=== PATIENT | female | born 1980 | race Two or more races ===

== ENCOUNTER 2016-12-09 23:30 | Emergency (ER) | payer MEDICAID ==
[2016-12-10] MEDS ORDERED: ACETAMINOPHEN 325 MG TABLET PO ONE (00:46)
[2016-12-10] MEDS ORDERED: MORPHINE SULFATE IR 15 MG TABLET PO ONE (00:46)
[2016-12-10] MEDS ORDERED: LIDOCAINE 5% (700 MG) TRANSDERMAL ADH..PATCH TP ONE (00:46)
--- NOTE | 2016-12-10 00:49 | ER Document Report ---
ED General - General Chief Complaint: Low Back Pain Stated Complaint: LOWER BACK PAIN Time Seen by Provider: 12/10/16 00:13 Notes: Patient is a 36-year-old female with past medical history of morbid obesity who presents with 36 hours of left low back pain. Patient states when she was in the shower yesterday she bent down to pick something off the floor and believes she strained her left low back. She states initially she did not have any significant pain but since that time she has had progressively worsening of a dull, constant, aching pain to the left low back that is worsened by movement. She does arrive by EMS today as she was laying in her bed and was unable to get out without assistance. No history of similar symptoms in the past. She has tried a icy hot patch to the back with moderate improvement of the pain. She has not seen a primary care doctor regarding today's concerns. She denies any associated weakness, numbness, bowel or bladder incontinence or urinary retention. No fever or IV drug use. TRAVEL OUTSIDE OF THE [place] IN LAST 30 DAYS: No - Related Data Allergies/Adverse Reactions: Penicillins Allergy (Verified 01/31/14 16:25) Past Medical History - General Information source: Patient - Social History Smoking Status: Never Smoker Frequency of alcohol use: None Drug Abuse: None Lives with: Family Family History: Arthritis Patient has suicidal ideation: No Patient has homicidal ideation: No Endocrine Medical History: Reports: Hx Hypothyroidism Renal/ Medical History: Denies: Hx Peritoneal Dialysis Past Surgical History: Reports: Hx Section - x2, Hx Dilation and Curettage - Miscarriage of twins at 2-1/2 month gestation, Hx Gynecologic Surgery - d&c - Immunizations Immunizations up to date: Yes Hx Diphtheria, Pertussis, Tetanus Vaccination: Yes Review of Systems - Review of Systems Notes: Constitutional: Negative for fever. HENT: Negative for sore throat. Eyes: Negative for visual changes. Cardiovascular: Negative for chest pain. Respiratory: Negative for shortness of breath. Gastrointestinal: Negative for abdominal pain, vomiting or diarrhea. Genitourinary: Negative for dysuria. Musculoskeletal: Positive for back pain. Skin: Negative for rash. Neurological: Negative for headaches, weakness or numbness. 10 point ROS negative except as marked above and in HPI. Physical Exam - Vital signs Vitals: Temp Pulse Resp BP Pulse Ox 97.7 F 86 20 131/80 H 100 12/09/16 23:45 12/09/16 23:45 12/09/16 23:45 12/09/16 23:45 12/09/16 23:45 Interpretation: Normal Notes: PHYSICAL EXAMINATION: GENERAL: Morbidly obese female who appears to be in pain but no acute distress HEAD: Atraumatic, normocephalic. EYES: Pupils equal round and reactive to light, extraocular movements intact, sclera anicteric, conjunctiva are normal. ENT: nares patent, oropharynx clear without exudates. Moist mucous membranes. NECK: Normal range of motion, supple without lymphadenopathy LUNGS: Breath sounds clear to auscultation bilaterally and equal. No wheezes rales or rhonchi. HEART: Regular rate and rhythm without murmurs ABDOMEN: Soft, nontender, normoactive bowel sounds. No guarding, no rebound. No masses appreciated. EXTREMITIES: Normal range of motion, no pitting or edema. No cyanosis. Back: No midline spinal tenderness, step-offs or deformities. Patient has focal pain to palpation of the left paraspinous muscle in the lumbar region. NEUROLOGICAL: 5 out of 5 strength both distally and proximally bilateral lower extremities. 2+ patellar reflexes bilaterally. No clonus. Sensation grossly intact in the bilateral lower extremities. Patient is able to ambulate without difficulty. PSYCH: Normal mood, normal affect. SKIN: Warm, Dry, normal turgor, no rashes or lesions noted. Course - Re-evaluation Re-evalutation: 12/10/16 00:47 Presentation of a well appearing patient complaining of acute on chronic back pain. No rapid progression of symptoms, systemic symptoms including fevers, chills, weight loss, history of recent bacterial infection, bilateral symptoms, numbness, weakness, difficulty walking, urinary retention or bowel incontinence , personal history of cancer, immunosuppression, diabetes, known AAA, or history of IV drug use. Exam is without point tenderness over vertebral bodies , pulsatile abdominal mass, and patient has symmetric and intact lower extremity strength, sensation, and reflexes without clonus. 2+ symmetric medial malleolar and dorsalis pedis pulses Based on history and physical, I have a very low suspicion of a concerning etiology of pain including epidural compression syndrome, spinal infection, transverse myelitis, malignancy, abdominal aortic aneurysm, renal colic, acute lower extremity claudication, neurogenic claudication, ankylosing spondylitis, or other intra-abdominal process. Due to absence of concerning risk factors in history and physical as well as absence of rapidly progressive, severe, or bilateral symptoms, will defer imaging at this point. Plan to manage conservatively with outpatient analgesia, analgesia, and physical therapy. - Acetaminophen 650 q 4 + ibuprofen 600 q 6 - Continue normal daily activities as tolerated by pain - Provide with standard musculoskeletal back pain exercise instructions - Instruct to follow up with primary care provider if symptoms not improving - Provide careful return precautions and concerning symptoms to watch for. - Vital Signs Vital signs: Temp Pulse Resp BP Pulse Ox 98.0 F 88 18 126/74 H 100 12/10/16 01:32 12/10/16 01:32 12/10/16 01:32 12/10/16 01:32 12/10/16 01:32 Discharge - Discharge Clinical Impression: Acute low back pain Qualifiers: Back pain laterality: left Sciatica presence: with sciatica Sciatica laterality : sciatica of left side Qualified Code(s): M54.42 - Lumbago with sciatica, left side Condition: Good Disposition: HOME, SELF-CARE Additional Instructions: You have been seen in the Emergency Department (ED) today for back pain. Your workup and exam have not shown any acute abnormalities and you are likely suffering from muscle strain or possible problems with your discs, but there is no treatment that will fix your symptoms at this time. For your pain: Take ibuprofen 600 mg and acetaminophen 1000 mg every 6 hours together as needed for pain. You should also purchase a local lidocaine cream such as "aspercreme with lidocaine" and use per bottle instructions to the affected area. Apply heat to the area as often as you are able. Continue to keep active and avoid prolonged periods of bed rest. You may also use Flexeril 10 mg nightly for spasm and assistance with sleep Please follow up with your doctor as soon as possible regarding today's ED visit and your back pain. Return to the ED for worsening back pain, fever, weakness or numbness of either leg, or if you develop either (1) an inability to urinate or have bowel movements, or (2) loss of your ability to control your bathroom functions (if you start having "accidents"), or if you develop other new symptoms that concern you.concern you. Prescriptions: Cyclobenzaprine HCl [Flexeril 10 mg Tablet] 10 mg PO QHS PRN #15 tablet PRN Reason:
[2016-12-10 01:34] VITALS: BP 126/74
== END 2016-12-10 01:35 | disposition home or self-care (01) ==
LOC: ER 23:30
DX: M54.5 Low back pain (principal); G89.29 Other chronic pain; E66.01 Morbid (severe) obesity due to excess calories; Z88.0 Allergy status to penicillin
CPT/HCPCS: 99283; J3490 ×2